=== PATIENT | male | born 1995 | race Two or more races ===

== ENCOUNTER 2022-01-14 11:09 | Emergency (ER) | payer OTHER ==
[~2022-01-14] VITALS: Ht 170.2 cm; Wt 90.7 kg
[2022-01-14] MEDS ORDERED: IBUPROFEN 800 MG TAB PO ONE (12:00)
[2022-01-14 12:15] VITALS: BP 160/90
[2022-01-14] MEDS ORDERED: IBUP800T27 PO (13:08)
[2022-01-14] MEDS ORDERED: METH750T22 PO (13:08)
== END 2022-01-14 13:34 | disposition home or self-care (01) ==
LOC: EDBD 11:09 → ER 11:09
DX: S83.91XA Sprain of unspecified site of right knee, initial encounter (principal); S16.1XXA Strain of muscle, fascia and tendon at neck level, initial encounter; Z85.038 Personal history of other malignant neoplasm of large intestine; V43.52XA Car driver injured in collision with other type car in traffic accident, initial encounter; Y93.89 Activity, other specified; Y92.410 Unspecified street and highway as the place of occurrence of the external cause; Y99.8 Other external cause status
CPT/HCPCS: 72040; 73562